=== PATIENT | male | born 1995 | race Caucasian/White ===

== ENCOUNTER 2018-09-10 21:34 | Emergency (ER) | payer BC ==
--- NOTE | 2018-09-10 22:21 | EDM.PDOC ---
ED HPI GENERAL MEDICAL PROBLEM - General Chief Complaint: Lower Extremity Injury/Pain Stated Complaint: PT RT LEG SWOLLEN Time Seen by Provider: 09/10/18 21:37 Source of Information: Reports: Patient History Limitations: Reports: No Limitations - History of Present Illness INITIAL COMMENTS - FREE TEXT/NARRATIVE: HISTORY AND PHYSICAL: History of present illness: Patient is a 23-year-old male presents to the ED today with concern of right ankle pain, swelling, and redness that started 2 days ago. Patient states 2 days ago he started noticing pain in the ankle. He denies any injury or trauma to the ankle. He states that since then the pain has worsened and is now a 9 out of 10. He states redness had started at the ankle is now spreading up his leg and down his foot. Patient denies any prior injury to the ankle. Patient denies any other symptoms or concerns. Patient has not taken anything for his symptoms. Patient denies any health history. Patient denies fever, chills, chest pain, shortness of breath, or cough. Denies headache, neck stiff ness, change in vision, syncope, or near syncope. Denies nausea, vomiting, abdominal pain, diarrhea, constipation, or dysuria. Has not noted any blood in urine or stool. Patient has been eating and drinking appropriately. Review of systems: As per history of present illness and below otherwise all systems reviewed and negative. Past medical history: As per history of present illness and as reviewed below otherwise noncontributory. Surgical history: As per history of present illness and as reviewed below otherwise noncontributory. Social history: See social history for further information Family history: As per history of present illness and as reviewed below otherwise noncontributory. Physical exam: General: Patient is alert, oriented, and in no acute distress. Patient laying comfortably on exam table. HEENT: Atraumatic, normocephalic, pupils equal and reactive bilaterally, negative for conjunctival pallor or scleral icterus, mucous membranes moist, TMs normal bilaterally, throat clear, neck supple, nontender, trachea midline. No drooling or trismus noted. No meningeal signs. No hot potato voice noted. Lungs: Clear to auscultation, breath sounds equal bilaterally, chest nontender. Heart: S1S2, regular rate and rhythm without overt murmur Abdomen: Soft, nondistended, nontender. Negative for masses or hepatosplenomegaly. Negative for costovertebral tenderness. Pelvis: Stable nontender. Genitourinary: Deferred. Rectal: Deferred. Skin: Intact, warm, dry. No lesions or rashes noted. Extremities: Negative for cords or calf pain. Neurovascular unremarkable. The right ankle has generalized moderate edema. Unable to assess range of motion of the right ankle due to pain. The right foot from the distal tib/fib down to the toes is erythematous and warm to the touch with pain to palpation. Patient does have full range of motion of the right hip and knee and digits. DP/PT pulses found via Doppler. Neuro: Awake, alert, oriented. Cranial nerves II through XII unremarkable. Cerebellum unremarkable. Motor and sensory unremarkable throughout. Exam nonfocal. Notes: Dr. Garcia directly involved in patient care. The area of cellulitis was outlined using a surgical marker. Admission for observation and IV antibiotics was offered to patient but he declines at this time. Discussed all risks and benefits of not being admitted, and patient understands and requesting discharge. Voices understanding and is agreeable to plan of care. Denies any further questions or concerns at this time. Diagnostics: CBC, CMP, right ankle x-ray, right foot x-ray, lower extremity Doppler ultrasound Therapeutics: Rocephin Prescription: Keflex Impression: Foot cellulitis, right Plan: 1. Take medication as prescribed. You can alternate ibuprofen and Tylenol as directed for pain and discomfort. Look for signs of spreading infection as discussed. 2. Follow-up with the primary care provider as discussed. Return to the ED as needed and as discussed. Definitive disposition and diagnosis as appropriate pending reevaluation and review of above. right foot Pain Score (Numeric/FACES): 9 - Related Data Allergies Allergy/AdvReac Type Severity Reaction Status Date / Time No Known Allergies Allergy Verified 09/10/18 21:41 Home Meds: Home Meds . [No Known Home Meds] 09/10/18 [History] Past Medical History HEENT History: Reports: None Cardiovascular History: Reports: None Respiratory History: Reports: None Gastrointestinal History: Reports: None Genitourinary History: Reports: None Musculoskeletal History: Reports: None Neurological History: Reports: None Psychiatric History: Reports: None Endocrine/Metabolic History: Reports: None Hematologic History: Reports: None Immunologic History: Reports: None Oncologic (Cancer) History: Reports: None Dermatologic History: Reports: None - Infectious Disease History Infectious Disease History: Reports: None - Past Surgical History Head Surgeries/Procedures: Reports: None Male Surgical History: Reports: None Social & Family History - Family History Family Medical History: Noncontributory - Tobacco Use Smoking Status *Q: Current Some Day Smoker Years of Tobacco use: 2 Packs/Tins Daily: 0.5 - Caffeine Use Caffeine Use: Reports: Energy Drinks - Recreational Drug Use Recreational Drug Use: No Review of Systems - Review of Systems Review Of Systems: ROS reveals no pertinent complaints other than HPI. ED EXAM, GENERAL - Physical Exam Exam: See Below (See dictation) Course - Vital Signs Last Recorded V/S: Last Vital Signs Temp 37.2 C 09/10/18 21:42 Pulse 86 09/10/18 23:28 Resp 18 09/10/18 23:28 BP 122/65 09/10/18 23:28 Pulse Ox 100 09/10/18 23:28 - Orders/Labs/Meds Labs: Laboratory Tests 09/10/18 09/10/18 Range/Units 22:04 22:04 WBC 8.05 (4.0-11.0) K/uL RBC 4.53 (4.50-5.90) M/uL Hgb 12.7 L (13.0-17.0) g/dL Hct 37.8 L (38.0-50.0) % MCV 83.4 (80.0-98.0) fL MCH 28.0 (27.0-32.0) pg MCHC 33.6 (31.0-37.0) g/dL RDW Std Deviation 43.3 (28.0-62.0) fl RDW Coeff of Darryl 14 (11.0-15.0) % Plt Count 150 (150-400) K/uL MPV 9.00 (7.40-12.00) fL Add Manual Diff YES Neutrophils % (Manual) 57 (48.0-80.0) % Band Neutrophils % 4 % Lymphocytes % (Manual) 23 (16.0-40.0) % Monocytes % (Manual) 14 (0.0-15.0) % Eosinophils % (Manual) 2 (0.0-7.0) % Nucleated RBC % 0.0 /100WBC Absolute Seg Neuts 4.6 (1.4-5.7) Band Neutrophils # 0.3 Lymphocytes # (Manual) 1.9 (0.6-2.4) Monocytes # (Manual) 1.1 H (0.0-0.8) Eosinophils # (Manual) 0.2 (0.0-0.7) Nucleated RBCs # 0 K/uL Sodium 139 (136-148) mmol/L Potassium 4.2 (3.5-5.1) mmol/L Chloride 104 (98-107) mmol/L Carbon Dioxide 24.6 (21.0-32.0) mmol/L BUN 18 (7.0-18.0) mg/dL Creatinine 0.8 (0.8-1.3) mg/dL Est Cr Clr Drug Dosing TNP Estimated GFR (MDRD) > 60.0 ml/min Glucose 107 H (74-106) mg/dL Calcium 8.7 (8.5-10.1) mg/dL Total Bilirubin 0.6 (0.2-1.0) mg/dL AST 73 H (15-37) IU/L ALT 64 H (14-63) IU/L Alkaline Phosphatase 67 (46-116) U/L Total Protein 7.0 (6.4-8.2) g/dL Albumin 3.8 (3.4-5.0) g/dL Globulin 3.2 (2.6-4.0) g/dL Albumin/Globulin Ratio 1.2 (0.9-1.6) Meds: Medications Discontinued Medications Generic Name Dose Route Start Last Admin Trade Name Freq PRN Reason Stop Dose Admin Ceftriaxone Sodium 1 gm 09/10/18 23:45 09/10/18 23:58 Rocephin IM 09/10/18 23:46 1 gm ONETIME ONE Administration Lidocaine HCl 2 ml 09/10/18 23:52 09/10/18 23:58 Xylocaine-Mpf 1% INJECT 09/10/18 23:53 2 ml ONETIME ONE Administration Departure - Departure Time of Disposition: 00:04 Disposition: Home, Self-Care 01 Clinical Impression: Cellulitis of foot - Discharge Information Forms: ED Department Discharge Additional Instructions: The following information is given to patients seen in the emergency department who are being discharged to home. This information is to outline your options for follow-up care. We provide all patients seen in our emergency department with a follow-up referral. The need for follow-up, as well as the timing and circumstances, are variable depending upon the specifics of your emergency department visit. If you don't have a primary care physician on staff, we will provide you with a referral. We always advise you to contact your personal physician following an emergency department visit to inform them of the circumstance of the visit and for follow-up with them and/or the need for any referrals to a consulting specialist. The emergency department will also refer you to a specialist when appropriate. This referral assures that you have the opportunity for follow-up care with a specialist. All of these measure are taken in an effort to provide you with optimal care, which includes your follow-up. Under all circumstances we always encourage you to contact your private physician who remains a resource for coordinating your care. When calling for follow-up care, please make the office aware that this follow-up is from your recent emergency room visit. If for any reason you are refused follow-up, please contact the [facility] Emergency Department at and asked to speak to the emergency department charge nurse. [facility] [address] [place] [address] [place] [address] 1. Take medication as prescribed. You can alternate ibuprofen and Tylenol as directed for pain and discomfort. Look for signs of spreading infection as discussed. 2. Follow-up with the primary care provider as discussed. Return to the ED as needed and as discussed.
--- NOTE | 2018-09-10 22:24 | CR ---
Indication: Redness and swelling for 2 days. Technique: Right foot 2 views Comparison: None Findings: Bones: Alignment is normal. No fractures or bone lesions. Joint spaces: Joint spaces are well maintained. No degenerative changes. Soft tissues: Mild soft tissue swelling. Impression: Mild soft tissue swelling without evidence of fracture or radiographic evidence of osteomyelitis. Dictated by Nikhil Basilio MD @ Sep 10 2018 10:23PM Signed by Dr. Nikhil Basilio @ Sep 10 2018 10:24PM
--- NOTE | 2018-09-10 22:24 | CR ---
Indication: Redness and swelling Technique: Right ankle 3 views Comparison: None Findings: Bones: Alignment is normal. No fractures or bone lesions. Joint spaces: Joint spaces are well maintained. No degenerative changes. Soft tissues: Diffuse soft tissue swelling. Impression: Diffuse soft tissue swelling without evidence of fracture or radiographic evidence of osteomyelitis. Dictated by Nikhil Basilio MD @ Sep 10 2018 10:20PM Signed by Dr. Nikhil Basilio @ Sep 10 2018 10:23PM
[2018-09-10 22:29] LABS: BLOOD UREA NITROGEN,BUN 18 mg/dL (7.0-18.0); CARBON DIOXIDE,CO2 24.6 mmol/L (21.0-32.0); CHLORIDE,CL 104 mmol/L (98-107); GLUCOSE RANDOM 107 mg/dL (74-106); POTASSIUM,K 4.2 mmol/L (3.5-5.1); SODIUM,NA 139 mmol/L (136-148)
[2018-09-10] MEDS ORDERED: cefTRIAXone 1 GM Vial IM ONE (23:45)
[2018-09-10] MEDS ORDERED: Lidocaine 1% PF 2 ML SDV INJECT ONE (23:52)
--- NOTE | 2018-09-10 23:53 | US ---
INDICATION: Redness right foot TECHNIQUE: Ultrasound venous duplex right lower extremity. Gilmore-scale, color Doppler, and spectral Doppler imaging were performed with compression and augmentation. COMPARISON: None FINDINGS: Deep veins: The right femoral, common femoral, popliteal, and visualized calf veins are fully compressible, demonstrate normal color flow, and normal response to mechanical augmentation. The Duplex Doppler waveforms are normal in appearance. The visualized contralateral left common femoral vein is patent. Superficial veins: The visualized greater saphenous and superficial veins of the leg and calf are unremarkable. Soft tissue: No masses or cysts are identified. No adenopathy is seen. Moderate subcutaneous edema is noted in the foot. IMPRESSION: 1. No sonographic evidence of deep venous thrombosis seen. Dictated by: Christoph Macdonald MD @ 09/10/2018 23:51:28 (Electronically Signed)
== END 2018-09-11 00:20 | disposition home or self-care (01) ==
LOC: MW.ED 21:34
DX: L03.115 Cellulitis of right lower limb (principal); F17.210 Nicotine dependence, cigarettes, uncomplicated
CPT/HCPCS: 36415; 73610; 73620; 80053; 85025; 93971; 96372; 99284; J0696; J2001